=== PATIENT | female | born 1985 | race Caucasian/White ===

== ENCOUNTER 2017-01-09 18:26 | Emergency (ER) | payer OTHER ==
[~2017-01-09] VITALS: Ht 165.1 cm; Wt 88.6 kg
[~2017-01-09 18:26] MED LIST: PREN1TAB29
[2017-01-09 18:32] VITALS: TEMP 36.7; Ht 165.1 cm; Wt 88.6 kg
--- NOTE | 2017-01-09 19:06 | DIAGNOSTIC IMAGING REPORT ---
LEFT ANKLE MIN 3 VIEWS ROUTINE CLINICAL HISTORY: Left ankle pain following trauma. COMPARISON: None FINDINGS: Alignment of the left ankle is anatomic. There is minimal plantar calcaneal spurring. There is no acute fracture. There is mild lateral ankle soft tissue swelling. IMPRESSION: No acute fracture or dislocation of the left ankle. Electronically signed by: Jay Jay Duenas M.D. 01/09/2017 7:05 PM Dictated Date/Time: 01/09/2017 7:04 PM
[2017-01-09] MEDS ORDERED: ASPI15TA PO (19:08)
--- NOTE | 2017-01-09 19:21 | EMERGENCY ROOM VISIT NOTE ---
ED Visit Note First contact with patient: 19:01 CHIEF COMPLAINT: Ankle pain HISTORY OF PRESENT ILLNESS: This 31-year-old female patient presents to the emergency department ambulatory after sustaining an injury to the left ankle and foot with a twisting, inversion motion earlier today. The patient reports she was playing basketball with her kids when she rolled the right ankle The patient complains of pain along the outside of the ankle. The patient denies pain of the foot. The patient rates the pain as sharp and 5/10. The patient is able to bear weight on the foot. Constant pain, worse with movement, weight bearing, and the dependent position. No knee pain, the patient is able to move their toes. No numbness or weakness of the foot, no laceration. The patient has not had a previous fracture to this ankle. The patient has taken no medication for the pain. The patient denies any other injury. REVIEW OF SYSTEMS: A 6 system review of systems was completed with positives and pertinent negatives listed in the HPI. ALLERGIES: No known drug allergies MEDICATIONS: No chronic medication PMH: No significant past medical history. SOCIAL HISTORY: The patient lives locally with family. PHYSICAL EXAM: Vital Signs: Reviewed Nurse's notes, vital signs stable. GENERAL : This is a 31-year-old female, no acute distress, but appears in pain, well- developed, well-nourished. MENTAL STATUS: Alert, oriented to person place and time, and cooperative. MUSCULOSKELETAL: The left ankle is swollen and tender over the lateral malleolus, but the skin is intact and there is no ligamentous instability. There is no fifth metatarsal tenderness. There is no tenderness over the rest of the foot. There is no calf or proximal tibia/fibular tenderness. There is no visual deformity. The foot and toes are warm and well- perfused. Dorsalis pedis pulse 2+. Sensation to pain and light touch is intact. Capillary refill less than 2 seconds. EMERGENCY DEPARTMENT COURSE: I examined the patient. X-rays of the left ankle were reviewed by myself and read by radiology and reveal no acute fractures. Gel ankle splint was applied to the ankle under my direction and the position was satisfactory. Neurovascular status was rechecked and intact. The patient was instructed on the use of crutches. The patient was discharged home in good condition. DIAGNOSIS: Left ankle sprain Current/Historical Medications Scheduled PRN Aspirin-Caffeine (Back & Body Extra Strengt), 2 TABS PO DIRECTED PRN for Pain Allergies Coded Allergies: No Known Allergies (Verified , 01/09/17) Vital Signs Date Time Temp Pulse Resp B/P Pulse Ox O2 Delivery O2 Flow Rate FiO2 01/09/17 18:32 36.7 66 18 134/78 97 Room Air Departure Information Impression Primary Impression: Left ankle sprain Dispostion Home / Self-Care Condition GOOD Referrals No Doctor, Assigned (PCP) Patient Instructions My [facility] Additional Instructions You have been treated in the Emergency Department for an Ankle sprain. For pain control, you can use the following [id number] medicines (if >12 yo): - Regular strength (325mg/tab) Tylenol (acetaminophen) 2 tabs every 4-6 hours as needed. Do not exceed 12 tablets in a 24 hour period. Avoid taking more than 4 grams (4000 mg) of Tylenol per day. This includes any other sources of acetaminophen you may take on a regular basis. - Regular strength (200 mg/tab) Advil (ibuprofen) 1-2 tabs every 4-6 hours as needed. Do not exceed a dose of 3200 mg per day. If this is a recent injury (<24 hrs), ice can be applied to the area of pain for the first 3 days to help decrease pain and inflammation. Follow-up with your primary care provider or orthopedics if there is persistent pain in 6-7 days. Keep the ankle brace/splint in place and use the crutches you have been provided to keep ALL weight off of the ankle until weight bearing is tolerable. Return to the Emergency Department if your current symptoms worsen despite treatment course outlined above, or if you develop any of the following symptoms : intractable pain despite aforementioned treatment course or new onset of numbness or tingling of the foot. Problem Qualifiers Primary Impression: Left ankle sprain Encounter type: initial encounter Involved ligament of ankle: unspecified ligament Qualified Codes: S93.402A - Sprain of unspecified ligament of left ankle, initial encounter
[2017-01-09 19:50] VITALS: BP 117/67; PULSE 64; O2SAT 99
== END 2017-01-09 19:51 | disposition home or self-care (01) ==
LOC: C.EDB 18:28 → C.EDD 19:51
DX: S93.402A Sprain of unspecified ligament of left ankle, initial encounter (principal); X58.XXXA Exposure to other specified factors, initial encounter; Y93.67 Activity, basketball

== ENCOUNTER → 2018-02-26 | Outpatient (CLI) | payer OTHER ==
[~2018-02-26] MED LIST changes: +ASPI15TA PO; -PREN1TAB29
== END | disposition home or self-care (01) ==
LOC: C.PAPS 07:41
PROVIDERS: ATTEND Obstetrics & Gynecology
DX: Z12.4 Encounter for screening for malignant neoplasm of cervix (principal); Z11.51 Encounter for screening for human papillomavirus (HPV)